=== PATIENT | female | born 1965 | race Caucasian/White ===

== ENCOUNTER → 2017-07-16 | Outpatient (CLI) | payer OTHER ==
--- NOTE | 2017-07-16 11:43 | RADIOLOGY REPORT PS360 ---
US RUQ-(ABD LTD)1ORGAN/QUAD/FU HISTORY: HEP C ORDERING PHYSICIAN: AL LOVE APRN PATIENT AGE: 52 years COMPARISON: None FINDINGS: PANCREAS:Unremarkable. No obvious mass or abnormal fluid collection. No ductal dilatation LIVER:There is a 13 x 11 mm cyst in the right hepatic lobe anteriorly. Homogeneous echogenicity. No intrahepatic biliary ductal dilatation evident RIGHT KIDNEY:Unremarkable. Normal size and echogenicity. No hydronephrosis GALLBLADDER: Sludge is present in the gallbladder. No gallstones, gallbladder wall thickening, pericholecystic fluid, or biliary dilatation. IMPRESSION: 1. Gallbladder sludge. 2. Small hepatic cyst.
== END ==
LOC: RAD 07-14 09:00
DX: B18.2 Chronic viral hepatitis C (principal)

== ENCOUNTER 2017-08-18 12:59 | Day surgery (SDC) | payer OTHER ==
--- NOTE | 2017-08-18 14:14 | Operative Note ---
Colonoscopy (Letty) Procedure date: 08/18/17 Date of : 63 Procedure:Colonoscopy Colonoscopy Indications: Mrs. Chavarria is a 52-year-old female who is here for initial screening colonoscopy. She does state that her maternal aunt had colon cancer in her late 40s or early 50s. The patient reports no abdominal pain, weight loss, change in her bowel habits or rectal bleeding Performing Provider: Terrence Saenz MD Referrring Provider: Jozef Brito M.D. Sedation: Fentanyl 150 mg IV/Versed 6 mg IV Procedure: Prior to the procedure, a history and physical exam was performed, and patient medications and allergies were reviewed. The risks and benefits of the procedure and the sedation options and risks were discussed with the patient. All questions were answered and informed consent was obtained. Patient identification and proposed procedure were verified by the physician and the nurse. The patient was placed in a left lateral decubitus position. Throughout the procedure, the patient's blood pressure, pulse, and oxygen saturations were monitored continuously. Findings: On digital rectal examination there was normal rectal tone. There were no external hemorrhoids. The colonoscope was introduced through the anal canal to the rectum and advanced to the cecum. The ileocecal valve and appendiceal orifice were identified. The scope was advanced a short distance into the ileum which appeared grossly normal. The scope was then withdrawn into the colon. The cecum, ascending, transverse, descending, sigmoid and rectum were grossly normal. There were no mucosal abnormalities identified. Upon retroflexion within the rectum there were grade 1 internal hemorrhoids. Impressions: 1. Normal colonoscopy with intubation of the terminal ileum 2. Grade 1 internal hemorrhoids Recommendations: The patient will not require screening/surveillance colonoscopy again for 10 years by ACS guidelines. I would encourage fiber supplementation on a long-term daily maintenance basis. Complications: None EBL (ml): 0 at 1413
[2017-08-18 14:50] VITALS: BP 108/73
== END 2017-08-18 14:35 | disposition home or self-care (01) ==
LOC: SDC 12:59
PROVIDERS: Internal Medicine Gastroenterology
PROC: 0DJD8ZZ Inspection of Lower Intestinal Tract, Via Natural or Artificial Opening Endoscopic (ICD-10-PCS; principal; 2017-08-18 14:00)
DX: Z12.11 Encounter for screening for malignant neoplasm of colon (principal); K64.0 First degree hemorrhoids

== ENCOUNTER → 2017-09-22 | Outpatient (CLI) | payer OTHER ==
[2017-09-22 13:42] LABS: HEMOGLOBIN 14.1 g/dL (12.2-16.2); LYMPH # 2.6 K/mm3 (0.7-4.5); LYMPH % 19.2 % (10-50.0)
[2017-09-22 15:52] LABS: BUN 14 mg/dL (7-18)
[2017-09-22 15:55] LABS: GFR (ESTIMATED) 75 ML/MIN (59-)
== END ==
LOC: LAB 12:09
PROVIDERS: Nurse Practitioner Acute Care
DX: B19.20 Unspecified viral hepatitis C without hepatic coma (principal)